=== PATIENT | male | born 1970 | race Caucasian/White ===

== ENCOUNTER 2017-03-20 15:32 | Emergency (ER) | payer BC ==
--- NOTE | 2017-03-20 15:55 | EDM.PDOC ---
ED HPI GENERAL MEDICAL PROBLEM - General Chief Complaint: Chest Pain Stated Complaint: [id number] HIGH BP CHEST AND ARM PAIN Time Seen by Provider: 03/20/17 15:53 Source of Information: Reports: Patient History Limitations: Reports: No Limitations - History of Present Illness INITIAL COMMENTS - FREE TEXT/NARRATIVE: 47 yo white male while sitting in car as passenger began to have left upper extremity weakness and chest pain with sweating. Pt. states previous symptoms two weeks ago in [place] and went to [facility] w/ negative w/u , pt. subsequently seen by PCP and treated for HTN with two medications. Pt. denies smoking Onset: Today Onset Date: 03/20/17 Onset Time: 13:00 Duration: Minutes: Location: Reports: Chest, Upper Extremity, Left Quality: Reports: Ache (chest) Severity: Moderate Improves with: Reports: None Worsens with: Reports: None Associated Symptoms: Reports: No Other Symptoms Mid-Sternal Chest Pain Score (Numeric/FACES): 2 - Related Data Allergies Allergy/AdvReac Type Severity Reaction Status Date / Time No Known Allergies Allergy Verified 03/20/17 16:39 Home Meds: Home Meds Lisinopril [Zestril] 20 mg PO BEDTIME 03/20/17 [History] amLODIPine [Norvasc] 10 mg PO BEDTIME 03/20/17 [History] ED ROS GENERAL - Review of Systems Review Of Systems: See Below Constitutional: Reports: No Symptoms HEENT: Reports: No Symptoms Respiratory: Reports: No Symptoms Cardiovascular: Reports: Chest Pain Endocrine: Reports: No Symptoms GI/Abdominal: Reports: No Symptoms : Reports: No Symptoms Musculoskeletal: Reports: Other (left upper extremity weakness) Skin: Reports: No Symptoms Neurological: Reports: No Symptoms Psychiatric: Reports: No Symptoms Hematologic/Lymphatic: Reports: No Symptoms Immunologic: Reports: No Symptoms ED EXAM, GENERAL - Physical Exam Exam: See Below Exam Limited By: No Limitations General Appearance: Alert, WD/WN, No Apparent Distress Eye Exam: Bilateral Eye: EOMI, PERRL Ears: Normal External Exam Nose: Normal Inspection Throat/Mouth: Normal Inspection Head: Atraumatic, Normocephalic Neck: Normal Inspection, Supple Respiratory/Chest: No Respiratory Distress, Lungs Clear Cardiovascular: Normal Peripheral Pulses, Regular Rate, Rhythm, No Edema Peripheral Pulses: 2+: Radial (L), Radial (R) GI/Abdominal: Normal Bowel Sounds, Soft Back Exam: Normal Inspection Extremities: Normal Inspection, Normal Range of Motion Neurological: Alert, Oriented, CN II-XII Intact Psychiatric: Normal Affect, Normal Mood Skin Exam: Warm, Dry, Intact, Normal Color Lymphatic: No Adenopathy Course - Vital Signs Text/Narrative:: all labs, ekg and cxr wnl Last Recorded V/S: Last Vital Signs Temp 36.1 C 03/20/17 15:53 Pulse 96 03/20/17 15:53 Resp 20 03/20/17 15:53 BP 148/84 H 03/20/17 15:53 Pulse Ox 98 03/20/17 15:53 - Orders/Labs/Meds Orders: Active Orders 24 hr Category Date Time Status EKG Documentation Completion [RC] STAT Care 03/20/17 15:54 Active Chest 1V Frontal [CR] Urgent Exams 03/20/17 15:54 Taken Sodium Chloride 0.9% [Normal Saline] 1,000 ml Med 03/20/17 16:00 Active IV ASDIRECTED Medication Orders Sodium Chloride (Normal Saline) 1,000 mls @ 75 mls/hr IV ASDIRECTED NEETU Last Admin: 03/20/17 16:35 Dose: 75 mls/hr Labs: Laboratory Tests 03/20/17 03/20/17 03/20/17 Range/Units 16:05 16:05 16:05 WBC 6.5 (5.0-10.0) 10^3/uL RBC 4.77 (4.6-6.2) 10^6/uL Hgb 14.8 (14.0-18.0) g/dL Hct 42.7 (40.0-54.0) % MCV 89.5 (80-100) fL MCH 31.0 (27.0-34.0) pg MCHC 34.7 (33.0-35.0) g/dL Plt Count 222 (150-450) 10^3/uL Neut % (Auto) 57.9 (42.2-75.2) % Lymph % (Auto) 29.0 (20.5-50.1) % [place] % (Auto) 10.9 H (2-8) % Eos % (Auto) 1.9 (1.0-3.0) % Baso % (Auto) 0.3 (0.0-1.0) % D-Dimer, Quantitative < 100 (0-400) ng/mL Sodium 139 (135-145) mmol/L Potassium 3.7 (3.6-5.0) mmol/L Chloride 105 (101-111) mmol/L Carbon Dioxide 22.0 (21.0-31.0) mmol/L Anion Gap 15.7 BUN 10 (7-18) mg/dL Creatinine 0.9 (0.6-1.3) mg/dL Est Cr Clr Drug Dosing 111.37 mL/min Estimated GFR (MDRD) > 60 BUN/Creatinine Ratio 11.11 Glucose 128 H (74-105) mg/dL Calcium 9.3 (8.4-10.2) mg/dl Total Bilirubin 0.5 (0.2-1.0) mg/dL AST 38 (10-42) IU/L ALT 60 (10-60) IU/L Alkaline Phosphatase 76 (42-121) IU/L Troponin I < 0.02 (0.00-0.02) ng/ml B-Natriuretic Peptide < 5 (0-100) pg/ml Total Protein 6.9 (6.7-8.2) g/dl Albumin 4.3 (3.2-5.5) g/dl Globulin 2.6 Albumin/Globulin Ratio 1.65 Meds: Medications Generic Name Dose Route Start Last Admin Trade Name Freq PRN Reason Stop Dose Admin Sodium Chloride 1,000 mls @ 75 mls/hr 03/20/17 16:00 03/20/17 16:35 Normal Saline IV 75 mls/hr ASDIRECTED NEETU Administration Discontinued Medications Generic Name Dose Route Start Last Admin Trade Name Krishna PRN Reason Stop Dose Admin Aspirin 324 mg 03/20/17 16:03 03/20/17 16:34 Aspirin PO 03/20/17 16:04 324 mg ONETIME ONE Administration Lorazepam 0.5 mg 03/20/17 16:52 03/20/17 17:20 Ativan PO 03/20/17 16:53 0.5 mg ONETIME ONE Administration Departure - Departure Time of Disposition: 17:23 Disposition: Home, Self-Care 01 Condition: Good Clinical Impression: Non-cardiac chest pain Forms: ED Department Discharge Additional Instructions: Rest Take Blood Pressure Medications as directed F/U PCP - My Orders Last 24 Hours: My Active Orders 03/20/17 15:54 EKG Documentation Completion [RC] STAT Chest 1V Frontal [CR] Urgent 03/20/17 16:00 Sodium Chloride 0.9% [Normal Saline] 1,000 ml IV ASDIRECTED - Assessment/Plan Last 24 Hours: My Active Orders 03/20/17 15:54 EKG Documentation Completion [RC] STAT Chest 1V Frontal [CR] Urgent 03/20/17 16:00 Sodium Chloride 0.9% [Normal Saline] 1,000 ml IV ASDIRECTED
[2017-03-20] MEDS ORDERED: Sodium Chloride 0.9% 1,000 ML IV SCH (16:00)
[2017-03-20] MEDS ORDERED: Aspirin 81 MG Tab.Chew PO ONE (16:03)
[2017-03-20 16:33] LABS: CHLORIDE,CL 105 mmol/L (101-111); SODIUM,NA 139 mmol/L (135-145)
[2017-03-20] MEDS ORDERED: LORazepam 0.5 MG Tab PO ONE (16:52)
--- NOTE | 2017-03-25 15:03 | EKG ---
03/20/2017 - [address] - FINDINGS: This 12-lead EKG shows wandering baseline in the limb leads. Rhythm is normal sinus with a ventricular rate of 84. Normal axis and intervals. No acute ST-segment or T-wave changes. [facility] /[id number]
== END 2017-03-20 17:32 | disposition home or self-care (01) ==
LOC: DL.ED 15:32
DX: R07.89 Other chest pain (principal)
CPT/HCPCS: 36415; 71010; 80053; 83880; 84484; 85025; 85379; 93005; 96360; 99285; A9270; J7030